=== PATIENT | female | born 1995 | race Caucasian/White ===

== ENCOUNTER → 2019-02-24 10:03 | Outpatient (CLI) | payer OTHER, SELFPAY ==
[2019-02-24 11:06] LABS: Add Manual Diff / Slide Review NO; Basophils Absolute Auto 0 /uL (0-100); Basophils Percent Auto 0.3 % (0-2); Eosinophils Absolute Auto 0 /uL (0-450); Eosinophils Percent Auto 0.4 % (2-4); Hematocrit 42.6 % (36-46); Hemoglobin 14.5 g/dL (12.0-16.0); Lymphocytes Absolute Auto 1700 /uL (1100-4500); Mean Corpuscular HGB Conc 34.1 % (30-36); Mean Corpuscular Hemoglobin 30.9 PG (26-34); Mean Corpuscular Volume 90.6 fL (80-100); Monocytes Absolute Auto 800 /uL (0-900); Monocytes Percent Auto 8.8 % (3-14); Neutrophils Absolute Auto 6300 /uL (1500-7000); Neutrophils Percent Auto 71.5 % (50-75); Platelet Count 181 X10^3/uL (150-400); White Blood Cell Count 8.8 X10^3/uL (4.5-11.0)
[2019-02-24 11:24] LABS: Hemoglobin A1C% w Est Avg Glu 4.5 % (4.0-6.0)
[2019-02-24 11:28] LABS: Glucose 80 mg/dL (70-100)
[2019-02-24 12:05] LABS: Hepatitis B Surface Antigen NEGATIVE s/c (NEGATIVE)
[2019-02-24 12:20] LABS: HIV 1 & 2 Ab/Ag 4th Gen Combo NEGATIVE (NEGATIVE); Hep C Virus Ab w/Reflex Quant NEGATIVE s/c (NEGATIVE)
[2019-02-24 15:33] LABS: Urine Chlamydia NOT DETECTED; Urine N gonorrhoeae NOT DETECTED
[2019-02-24 16:09] LABS: Appearance Urine UA CLEAR; Bilirubin Urine UA NEGATIVE (NEGATIVE); Color Urine UA YELLOW; Glucose Urine UA NEGATIVE (Negative); Ketones Urine UA TRACE (NEGATIVE); Leukocyte Esterase Urine UA NEGATIVE (NEGATIVE); Nitrite Urine UA NEGATIVE (Negative); Occult Blood Urine UA NEGATIVE (Negative); Protein Urine UA NEGATIVE (Negative); Specific Gravity Urine UA 1.015 (1.000-1.035); Urobilinogen Urine UA 0.2 E.U./dL (0.2)
[2019-02-26 15:44] LABS: RPR Screen Nonreactive (Nonreactive)
== END ==
DX: Z34.01 Encounter for supervision of normal first pregnancy, first trimester (principal)
CPT/HCPCS: 36415; 80055; 81003; 82947; 83036; 86787; 86803; 86850; 86900; 86901; 87086; 87389; 87491; 87591

== ENCOUNTER → 2019-04-03 12:12 | Outpatient (CLI) | payer OTHER, SELFPAY ==
[2019-04-06 08:47] LABS: Sequential Screen 1st Trimeste FINAL PENDING
== END ==
DX: Z34.01 Encounter for supervision of normal first pregnancy, first trimester (principal); Z36.0 Encounter for antenatal screening for chromosomal anomalies
CPT/HCPCS: 36415; 84163; 84702

== ENCOUNTER → 2019-05-08 16:55 | Outpatient (CLI) | payer OTHER, SELFPAY ==
[2019-05-13 12:46] LABS: Sequential Screen 2nd Trimeste SCREEN NEGATIVE
== END ==
DX: Z34.92 Encounter for supervision of normal pregnancy, unspecified, second trimester (principal); Z3A.16 16 weeks gestation of pregnancy
CPT/HCPCS: 36415; 82105; 82677; 84163; 84702; 86336

== ENCOUNTER → 2019-09-07 08:24 | Outpatient (CLI) | payer OTHER, SELFPAY ==
[2019-09-08 09:06] LABS: Strep Grp B PCR NEG for Grp B Strep
== END ==
DX: Z34.03 Encounter for supervision of normal first pregnancy, third trimester (principal)
CPT/HCPCS: 87653

== ENCOUNTER → 2019-10-03 14:18 | Outpatient (CLI) | payer OTHER, SELFPAY ==
[2019-10-04 10:20] LABS: COVID19 Sendout Not Detected (Not Detect)
== END ==
PROVIDERS: Visit Provider Physician Assistant
DX: Z11.59 Encounter for screening for other viral diseases (principal)
CPT/HCPCS: 87635

== ENCOUNTER 2019-10-06 06:08 | Inpatient (IN) | payer OTHER, SELFPAY ==
--- NOTE | 2019-10-06 08:26 | P.HPOB_ITS ---
OB HPI Date/Time Date of admission: 10/06/19 Date Patient Seen: 10/06/19 History of Present Condition Chief complaint: Induction : 1 Para: 0 Estimated Date of Delivery: 10/10/19 Estimated Gestational Age (weeks): 39 Narrative: Chay English is a 23 year old female Indications Indication for induction OB: maternal distance History of Present care: good care Dating criteria: LMP confirmed by 1st trimester US Ultrasounds: normal 1st trimester US and normal mid trimester US Obstetrical complications: none Medical complications: none Preadmission Labs Integrated screen: neg Evaluation Evaluation Baseline heart rate: 140 Variability: Average (6-10) monitor accelerations: Present monitor decelerations: Absent Cervical dilation (cm): 3 Cervical effacement (%): 70 station: -1 [facility] Medical History (Updated 05/29/19 @ 16:34 by Casa Herrera MD) Acne (Acute) Anxiety (Acute) Constipation (Chronic) Disordered eating (Acute) Surgical History [place] teeth extracted (Acute) Family History Mother Multiple sclerosis Hypertension Father Gout Grandmother Diabetes mellitus Grandmother Ovarian cancer Social History marital status: household members: spouse pets and animals: Yes (Dog) education level: high school occupational status: employed current occupational exposures/hazards: No special josie needs: No do you feel safe at home: Yes Smoking Status: Never smoker second hand exposure: No alcohol intake: former during the past year weight has: decreased > 10 lbs well-balanced diet: daily or most days Type(s) of exercise: walking Meds Home Medications and Allergies Home Medications Medication Instructions Recorded Confirmed Type prenat.vits,mary,ntw-mfrh-yvnbe 1 tab PO DAILY 02/11/19 10/05/19 History Double Electric breast Pump and #1 each 08/05/19 10/05/19 Rx Supplies Allergies Allergy/AdvReac Type Severity Reaction Status Date / Time No Known Drug Allergies Allergy Verified 10/05/19 09:19 Exam Const General: cooperative and healthy appearing [facility] Head: normal to inspection Ears: hearing grossly normal bilaterally Nose: external nose normal Face and sinus: normal facial exam Mouth: oral mucosae normal, lip normal, tongue normal and moist mucous membranes Teeth and gingiva: dentition normal Throat: posterior oropharynx normal Eyes General: appearance normal, both eyes and all related structures Neck Neck: normal visual inspection and full ROM Chest Chest: normal inspection of the chest and normal palpation of entire chest wall Breast inspection: normal inspection of the breasts and normal inspection of the axillae Breast Palpation: normal palpation of the breasts and normal palpation of the axillae Resp Effort & Inspection: normal respiratory effort Auscultation: clear to auscultation bilaterally Cardio Palpation: normal PMI Rate: regular rate Rhythm: regular rhythm Heart Sounds: S1 normal and S2 normal GI Inspection: normal to inspection Palpation: soft and no hepatosplenomegaly Percussion: normal to percussion Auscultation: normal bowel sounds External Female Exam: normal external appearance and normal appearance of the urethra Speculum Exam - Vagina: normal appearance of the vagina and normal vaginal discharge OB/External & Speculum: external exam normal Manual OB Exam: dilated 3, effaced 75% and station -1 Uterus Location (Fundal Height): 38 Back/Spine/Pelvis Thoracic/Lumbar Spine: thoracic and lumbar spine normal to inspection Skin General: no rashes or lesions noted Neuro General: patient alert, patient oriented x3, tone normal and moves all extre mities Cognition: normal cognition Speech: speech normal Gait: normal gait Motor: muscle tone normal throughout Sensory Exam: no sensory deficits noted Extrem General: normal to inspection and normal exam except as noted Psych Appearance: grossly normal and well kempt Mental Status: mental status grossly normal Speech and Movement: speech and movement normal Assessment and Plan Assessment and Plan Assessment and Plan narrative: Term pegnancy Induciton for long distnce from [facility]
[2019-10-06] MEDS: LACTATED RINGERS 1,000 ML 100 ML IV ×2 (08:41→10:05)
[2019-10-06] MEDS: OXYTOCIN PREMIX 30 UNIT/500 ML PLAST..BAG IV (08:41)
[2019-10-06 08:53] LABS: Add Manual Diff / Slide Review NO; Basophils Absolute Auto 200 /uL (0-100); Basophils Percent Auto 1.6 % (0-2); Eosinophils Absolute Auto 100 /uL (0-450); Eosinophils Percent Auto 0.6 % (2-4); Hematocrit 39.4 % (36-46); Hemoglobin 13.9 g/dL (12.0-16.0); Lymphocytes Absolute Auto 1200 /uL (1100-4500); Lymphocytes Percent Auto 12.4 % (25-40); Mean Corpuscular HGB Conc 35.3 % (30-36); Mean Corpuscular Hemoglobin 31.7 PG (26-34); Mean Corpuscular Volume 89.9 fL (80-100); Monocytes Absolute Auto 800 /uL (0-900); Monocytes Percent Auto 7.8 % (3-14); Neutrophils Absolute Auto 7700 /uL (1500-7000); Neutrophils Percent Auto 77.6 % (50-75); Platelet Count 180 X10^3/uL (150-400); Red Blood Cell Count 4.38 X10^6/uL (4.0-5.2); Red Cell Distribution Width 12.3 % (11.6-14.8); White Blood Cell Count 9.9 X10^3/uL (4.5-11.0)
[2019-10-06] MEDS: FENT 2MCG/ML BUPIV 0.125% EPI 200 MCG/100 ML PLAST..BAG 10 MCG EPIDURAL (09:30)
[2019-10-06 10:38] VITALS: BP 117/73
--- NOTE | 2019-10-06 15:40 | P.PCNOB_ITS ---
Labor & Delivery Delivery date: 10/06/19 Cervical ripening method: none Induction method: per pitocin protocol Delivery augmentation: rupture of membranes Delivery monitor: external FHT and external uterine Route of delivery: L&D Laceration Description: Perineal - 1st Degree Delivery repair: chromic Estimated blood loss (mL): 300 Anesthesia type: Epidural Complications: None Narrative: The patient is a 23-year-old white female one now para one presented for elective induction of labor because she lives in an [facility]. Patient had a favorable cervix with a Zhao score of 10. Pitocin was begun. Membranes were ruptured. Epidural anesthesia was placed. She made rapid progress to complete pushed and delivered spontaneously a live born female with scores of nine at 1 minutes and nine at 5 minutes in good condition. She sustained a small first-degree perineal tear repaired with two 0 chromic suture. There are no cervical or vaginal lacerations. Placenta delivered spontaneously. Cord had three vessels. Cord blood was obtained. The measured blood loss was 300 cc. Plan for aftercare: Routine
[2019-10-06] MEDS: IBUPROFEN 600 MG TABLET PO (20:41)
[2019-10-07] MEDS: IBUPROFEN 600 MG TABLET PO ×2 (02:54→10:10)
[2019-10-07] MEDS: ACETAMINOPHEN 325 MG TABLET 650 MG PO ×2 (02:55→10:10)
[2019-10-07 06:39] LABS: Hematocrit 34.8 % (36-46); Hemoglobin 12.2 g/dL (12.0-16.0)
--- NOTE | 2019-10-07 08:12 | P.DS_ITS ---
Discharge Providers Provider Date of admission: 10/06/19 06:08 Discharge Date: 10/07/19 Consults: 10/07/19 15:38 Consult to Senior Genetic Counselor Routine Comment: Discharge provider: Casa Herrera MD Summary Hospital Course Date Patient Seen: 10/07/19 Time Patient Seen: 08:12 Procedures: Pitocin induction of labor Artificial rupture membranes Epidural anesthesia Spontaneous vaginal delivery Repair of 1st degree tear Hospital Course: Patient is a 23-year-old white female one para 0 who presented for induction of labor because of long distance from the hospital. She was at 39 and three 7th weeks. Her cervix was favorable with a Zhao score of 10. Pitocin was begun. Membranes were ruptured. An epidural was placed. The patient made rapid progress to complete and delivered spontaneously a live born female infant with scores of nine at 1 minutes and nine at 5 minutes is in good condition her weighing 3340 g. Estimated blood loss measured was 300 cc. Patient sustained a minor first-degree perineal tear which was repaired with two 0 chromic suture. Post delivery the patient did well. She remained afebrile with stable vital signs and was progressively ambulated. She was taking p.o. well. She was voiding in good volumes. Peripartum Data Infant Delivery Method: Natural Vaginal Laceration description: Perineal - 1st Degree Status at Discharge Cognitive/behavioral status at discharge: oriented Functional status at discharge: independent ambulation Overall status at discharge: patient is progressing back to baseline Time Spent with Patient Time attestation: Total time spent providing and/or coordinating discharge services: Time spent: Less than 30 minutes Objective Labs Result Diagrams: 10/07/19 06:26 Labs: Laboratory Results - last 24 hr 10/06/19 10/06/19 10/07/19 07:15 07:15 06:26 WBC 9.9 RBC 4.38 Hgb 13.9 12.2 Hct 39.4 34.8 L MCV 89.9 MCH 31.7 MCHC 35.3 RDW 12.3 Plt Count 180 Neut % (Auto) 77.6 H Lymph % (Auto) 12.4 L Coke % (Auto) 7.8 Eos % (Auto) 0.6 L Baso % (Auto) 1.6 Neut # (Auto) 7700 H Lymph # (Auto) 1200 Coke # (Auto) 800 Eos # (Auto) 100 Baso # (Auto) 200 H Blood Type B Positive Antibody Screen Negative Exam Vital Signs (past 8 hours): Fundus well involuted U minus four Perineum without ecchymoses or hematoma Discharge Plan Discharge Plan Patient Disposition: Home Discharge orders & Medications Prescriptions: New oxycodone 5 mg Tablet 5 mg PO Q4HR PRN (Reason: Pain, Moderate (4-6)) Qty: 10 RF: 0 ferrous gluconate 324 mg (38 mg iron) Tablet 324 mg PO DAILY Qty: 30 RF: 0 Dermoplast (with menthol) 20-0.5 % Aerosol 1 spray topical Q1HR PRN (Reason: perineal pain) Qty: 1 RF: 0 ibuprofen 600 mg Tablet 600 mg PO Q6HR PRN (Reason: Pain, Mild (1-3)) Qty: 20 RF: 0 Gau-L-Cypnnd Cream 1 applic topical PRN PRN (Reason: Tenderness) Qty: 1 RF: 0 docusate sodium [DOK] 100 mg Capsule 100 mg PO DAILY Qty: 14 RF: 0 Continued (DME) Double Electric breast Pump and Supplies See Rx Instructions .ROUTE .MEDSUPPLY Qty: 1 RF: 0 prenat.vits,mary,box-ahzx-aahfe Tablet 1 tab PO DAILY RF: 0 Follow up/Referrals: Casa Herrera MD [Physician] - 1 Month Discharge Health Status Multidrug resistant organism: No MDRO Diet/Activity/Treatments Diet: Diet as Tolerated Skin/Wound/Dressing Care Report to your healthcare provider any signs of infection, such as:: chills, fever, increased pain, unusual drainage and unusual redness Other wound treatment: Keep perineum clean and dry Visit Report/Discharge Packet Instructions: DI for Prescription Opioid Use
[2019-10-07] MEDS: FERROUS GLUCONATE 324 MG TABLET PO (09:27)
[2019-10-07] MEDS: DOCUSATE 100 MG CAPSULE PO (09:27)
[2019-10-07] MEDS: LANOLIN OINT 7 GM 1 APPLIC TOP (10:27)
[2019-10-07] MEDS: DERMOPLAST SPRAY 20% 60 ML 1 SPRAY TOP (10:28)
[2019-10-07 11:38] VITALS: BP 128/83; PULSE 87; RESP 17; TEMP 36.7
== END 2019-10-07 14:08 | disposition home or self-care (01) | DRG 807 ==
DX: O70.0 First degree perineal laceration during delivery (principal); Z37.0 Single live birth; Z3A.39 39 weeks gestation of pregnancy
CPT/HCPCS: 01967; 36415; 59050; 59400; 85014; 85018; 85025; 86850; 86900; 86901; G0379; J2590